=== PATIENT | male | born 1990 | race Caucasian/White ===

== ENCOUNTER 2017-03-14 22:27 | Emergency (ER) | payer SELFPAY ==
[~2017-03-14] VITALS: Ht 180.3 cm; Wt 136.9 kg
[~2017-03-14 22:27] MED LIST: NAPROSYN500 MG PO; PEPCID20 MG PO; ULTRAM50 MG PO; ZOFRAN ODT4 MG PO
[2017-03-14] MEDS ORDERED: ROBAXIN750 MG PO (23:12)
[2017-03-14] MEDS ORDERED: NAPROSYN500 MG PO (23:12)
[2017-03-14] MEDS ORDERED: ZOFRAN ODT4 MG PO (23:12)
[2017-03-14 23:28] VITALS: BP 118/63
== END 2017-03-14 23:30 | disposition home or self-care (01) ==
LOC: EME 22:27
DX: M54.5 Low back pain (principal); F17.200 Nicotine dependence, unspecified, uncomplicated
CPT/HCPCS: 99281; 99283